=== PATIENT | female | born 1980 | race Hispanic/Latino ===

== ENCOUNTER 2017-07-02 17:34 | Emergency (ER) | payer MEDICAID, OTHER ==
[2017-07-02] MEDS ORDERED: KETOROLAC TROMETHAMINE 30MG/ML ONE (17:51)
== END 2017-07-02 18:06 | disposition home or self-care (01) ==
LOC: EDH 17:34
DX: H60.91 Unspecified otitis externa, right ear (principal); Z88.0 Allergy status to penicillin; Z98.890 Other specified postprocedural states
CPT/HCPCS: 96372; 99283; J1885